=== PATIENT | female | born 1995 | race Caucasian/White ===

== ENCOUNTER 2021-08-24 06:40 | Inpatient (IN) ==
[2021-08-24] MEDS: LACTATED RINGER'S 1,000 ML IV PRN ×2 (08:00→11:56)
[2021-08-24 09:41] LABS: Hematocrit (blood only) 35.9 % (37-47); Hemoglobin 12.1 g/dL (12.0-16.0); Mean Corpuscular Hemoglobin 29.2 pg (25-34); Mean Corpuscular Hgb Conc 33.7 g/dL (32-36); Mean Corpuscular Volume 86.5 fL (80-100); Mean Platelet Volume 12.6 fL (7.4-10.4); Platelet Count 201 K/uL (130-400); RDW Coefficient of Variation 15.2 % (11.5-14.5); RDW Standard Deviation 48.1 fL (36.4-46.3); Red Blood Count 4.15 M/uL (4.2-5.4); White Blood Count 15.76 K/uL (4.8-10.8)
[2021-08-24] MEDS ORDERED: OXYTOCIN 30 UNITS/500 ML BAG IV PRN ×3 (09:44→15:22)
--- NOTE | 2021-08-24 09:44 | History & Physical Report ---
Date of Service August 24, 2021 Assessment & Plan (1) Post-dates : Plan: epidural planned anticipate normal vaginal delivery Admission and Anticipated Discharge Date Admission Date: August 24, 2021 History of Present Illness Chief Complaint: post-dates for induction of labor Primary Care Provider: KASSIE PCP 26 F P2012 at 41.4 weeks admitted for induction of labor for post dates and started to have contractions on her own starting at 0830 this morning. Now 4 cm and starting to get uncomfortable. 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 Other Information That Helps Us Care for You: No Feels Safe at Home: Yes Safety Concerns: Feels Safe At This Time Assistive Devices: None Review of Systems Review of Systems: All systems reviewed & are unremarkable except as noted in HPI & below Physical Exam Constitutional: WD/WN, vitals as above Eyes: PERRL, conjunctivae normal, anicteric sclerae Respiratory: normal respiratory effort, lungs clear to auscultation Cardiovascular: RRR, no murmur, no edema Skin: no rashes, warm and dry Neurologic: patellar DTR's 2+ bilat, sensation intact Psychiatric: A+Ox3, euthymic affect Genitourinary: OB Exam Abdomen: + vertex and + estimated weight (7 lbs.) Manual OB Exam: + cervical dilation 4 cm, + cervical effacement 70% and + station -2 OB Exam Monitor Tracing: + external FHT monitor used, + external uterine monitor used, + category I and + normal FHT variability Results & Data Results & Data ([facility]) Vital Signs (Past 12 Hours) Vital Signs Temp Pulse Resp BP 08/24/21 07:02 80 107/58 L 08/24/21 07:00 37.1 C 80 18 107/58 L Laboratory Results Laboratory Results - last 72 hr 08/24/21 09:28 WBC 15.76 H RBC 4.15 L Hgb 12.1 Hct 35.9 L MCV 86.5 MCH 29.2 MCHC 33.7 RDW Std Deviation 48.1 H RDW Coeff of Jack 15.2 H Plt Count 201 MPV 12.6 H
[2021-08-24] MEDS ORDERED: SODIUM CHLORIDE 0.9% INJ 10 ML VIAL ONE (09:46)
[2021-08-24] MEDS ORDERED: ePHEDrine sulfate 50 MG/ML AMP ONE (09:46)
[2021-08-24] MEDS ORDERED: fentaNYL citrate 100 MCG/2 ML VIAL ONE (09:47)
[2021-08-24] MEDS ORDERED: BUPIVACAINE 0.25% 30 ML VIAL ONE (09:47)
[2021-08-24] MEDS ORDERED: fentaNYL 2MCG/ML ROPIVACAINE 1.25MG/ML 100 ML BAG EPI ONE (09:47)
[2021-08-24] MEDS ORDERED: OXYTOCIN 30 UNITS/500ML NSS ONE (09:48)
--- NOTE | 2021-08-24 10:12 | Anesthesiology Consultation ---
Date of Service August 24, 2021 Assessment & Plan Chart Review Chart Review: Acceptable Risk for Labor Epidural Consults Requested none History Height/Weight Height: 5 ft Weight: 63.2 kg Allergies Allergy/AdvReac Type Severity Reaction Status Date / Time No Known Allergies Allergy Unverified 07/27/21 00:19 Medications Home Medications Medication Instructions Recorded Confirmed Last Taken ferrous sulfate 27 mg iron tablet 27 mg PO BID 07/27/21 08/24/21 08/23/21 [id number] 1 mg 1 tab PO DAILY 07/27/21 08/24/21 08/23/21 tablet Social History Smoking Status: Current every day smoker tobacco type: cigarettes Smoking cigarettes per day: 2 Hx Alcohol Use: No Hx Substance Use: No Physical Exam Vital Signs Last Vital Signs Temp 37.1 C 08/24/21 07:00 Pulse 75 08/24/21 10:10 Resp 18 08/24/21 07:00 BP 101/55 L 08/24/21 10:09 Pulse Ox 99 08/24/21 10:10 Testing Laboratory Results 08/24/21 09:28
[2021-08-24] MEDS ORDERED: diphenhydrAMINE 50 MG/ML VIAL IV PRN (10:14)
[2021-08-24] MEDS ORDERED: ePHEDrine sulfate 50 MG/ML AMP IV PRN (10:14)
[2021-08-24] MEDS ORDERED: fentaNYL 2MCG/ML ROPIVACAINE 1.25MG/ML 100 ML BAG EPI PRN (10:14)
[2021-08-24] MEDS ORDERED: NALOXONE HCL 0.4 MG/1 ML VIAL/CARP IV PRN (10:14)
[2021-08-24] MEDS ORDERED: NALBUPHINE HCL INJ 10 MG/ML AMP IV PRN (10:14)
[2021-08-24] MEDS ORDERED: NALOXONE HCL 1 MG in SODIUM CHLORIDE 0.9% 1000ML 1,000 ML IV PRN (10:14)
--- NOTE | 2021-08-24 10:53 | Labor Progress Brief Note ---
Date of Service August 24, 2021 Assessment & Plan Admission and Anticipated Discharge Date Admission Date: August 24, 2021 Physical Exam Genitourinary: Manual OB Exam: + cervical dilation 4 cm, + cervical effacement 70%, + station -2 and + amniotic fluid clear AROM with Amni-hook clear fluid will start Oxytocin to augment contractions Results & Data ([facility]) Vital Signs (Past 12 Hours) Vital Signs Temp Pulse Resp BP Pulse Ox 08/24/21 10:48 71 111/58 L 08/24/21 10:45 66 99 08/24/21 10:40 63 100 08/24/21 10:35 75 100 08/24/21 10:31 65 112/60 08/24/21 10:30 69 96 08/24/21 10:25 81 100 08/24/21 10:20 69 100 08/24/21 10:19 96 H 120/56 L 08/24/21 10:16 75 111/58 L 08/24/21 10:15 65 99 08/24/21 10:14 90 101/57 L 08/24/21 10:13 86 89/48 L 08/24/21 10:10 75 99 08/24/21 10:09 74 101/55 L 08/24/21 10:07 78 104/56 L 08/24/21 10:05 70 99 08/24/21 10:04 63 104/59 L 08/24/21 10:01 62 108/58 L 08/24/21 10:00 66 96 08/24/21 09:55 68 97 08/24/21 09:54 57 L 108/58 L 08/24/21 09:52 62 92 08/24/21 09:50 70 100 08/24/21 07:02 80 107/58 L 08/24/21 07:00 37.1 C 80 18 107/58 L
[2021-08-24 12:27] LABS: Amphetamines+Metham, Urine Neg (Neg); Barbiturates, Urine Neg (Neg); Benzodiazepine, Urine Neg (Neg); Cocaine, Urine Neg (Neg); MDMA (Ecstacy), Urine Neg (Neg); Methadone, Urine Neg (Neg); Opiate, Urine Neg (Neg); Phencyclidine, Urine Neg (Neg)
--- NOTE | 2021-08-24 14:55 | Labor Progress Brief Note ---
Date of Service August 24, 2021 Assessment & Plan Admission and Anticipated Discharge Date Admission Date: August 24, 2021 Physical Exam Genitourinary: Manual OB Exam: + cervical dilation 10 cm, + cervical effacement 100%, + station + 1 and + amniotic fluid clear OB Exam Monitor Tracing: + external FHT monitor used, + external uterine monitor used, + category I and + normal FHT variability Results & Data ([facility]) Vital Signs (Past 12 Hours) Vital Signs Temp Pulse Resp BP Pulse Ox 08/24/21 14:48 74 114/56 L 08/24/21 14:32 70 105/58 L 08/24/21 14:19 71 107/60 08/24/21 14:15 18 08/24/21 14:01 102 H 116/70 08/24/21 13:56 93 H 87 L 08/24/21 13:55 78 97 08/24/21 13:50 110 H 97 08/24/21 13:49 36.9 C 18 08/24/21 13:48 90 118/73 08/24/21 13:45 75 18 98 08/24/21 13:40 73 99 08/24/21 13:35 65 100 08/24/21 13:32 74 130/64 08/24/21 13:30 62 99 08/24/21 13:25 67 99 08/24/21 13:20 60 99 08/24/21 13:16 83 106/68 08/24/21 13:15 75 18 99 08/24/21 13:10 62 98 08/24/21 13:05 87 99 08/24/21 13:02 74 104/58 L 08/24/21 13:00 64 98 08/24/21 12:55 75 100 08/24/21 12:50 86 99 08/24/21 12:48 80 109/58 L 08/24/21 12:45 59 L 18 98 08/24/21 12:40 65 99 08/24/21 12:35 76 99 08/24/21 12:33 18 08/24/21 12:31 72 106/59 L 08/24/21 12:30 61 98 08/24/21 12:25 72 99 08/24/21 12:20 76 99 08/24/21 12:17 74 105/55 L 08/24/21 12:15 60 18 98 08/24/21 12:10 71 100 08/24/21 12:05 64 99 08/24/21 12:01 75 94/65 L 08/24/21 12:00 62 98 08/24/21 11:59 36.9 C 18 08/24/21 11:55 87 100 08/24/21 11:53 18 08/24/21 11:50 82 100 08/24/21 11:46 84 88/62 L 08/24/21 11:45 82 16 100 08/24/21 11:40 73 100 08/24/21 11:35 84 99 08/24/21 11:31 68 89/56 L 08/24/21 11:30 65 100 08/24/21 11:25 73 99 08/24/21 11:20 64 99 08/24/21 11:16 67 105/58 L 08/24/21 11:15 70 18 98 08/24/21 11:10 63 97 08/24/21 11:05 62 99 08/24/21 11:03 59 L 104/56 L 89 L 08/24/21 11:00 74 99 08/24/21 10:55 64 100 08/24/21 10:50 58 L 100 08/24/21 10:48 71 111/58 L 08/24/21 10:45 66 99 08/24/21 10:40 63 100 08/24/21 10:35 75 100 08/24/21 10:31 65 112/60 08/24/21 10:30 69 96 08/24/21 10:25 81 100 08/24/21 10:20 69 100 08/24/21 10:19 96 H 120/56 L 08/24/21 10:16 75 111/58 L 08/24/21 10:15 65 99 08/24/21 10:14 90 101/57 L 08/24/21 10:13 86 89/48 L 08/24/21 10:10 75 99 08/24/21 10:09 74 101/55 L 08/24/21 10:07 78 104/56 L 08/24/21 10:05 70 99 08/24/21 10:04 63 104/59 L 08/24/21 10:01 62 108/58 L 08/24/21 10:00 66 96 08/24/21 09:55 68 97 11/29/21 09:54 57 L 108/58 L 08/24/21 09:52 62 92 08/24/21 09:50 70 100 08/24/21 07:02 80 107/58 L 08/24/21 07:00 37.1 C 80 18 107/58 L
--- NOTE | 2021-08-24 15:20 | Delivery Summary ---
Vaginal Delivery Summary Date of Service August 24, 2021 Vaginal Delivery Summary Delivery Note live male COREY over intact perineum with delayed cord clamping and 8/9 weight pending. Cord blood obtained followed by spontaneous delivery of intact placenta. No tears. EBL 100 ml. Final sponge and instrument count are correct. Mom and baby stable.
[2021-08-24] MEDS ORDERED: bisacodyL 10 MG SUPP PR PRN (15:22)
[2021-08-24] MEDS ORDERED: BENZOCAINE 20% AER SPR 82.5 GM CAN EXT PRN (15:22)
[2021-08-24] MEDS ORDERED: HYDROCORTISONE ACETATE 25 MG SUPP PR PRN (15:22)
[2021-08-24] MEDS ORDERED: DIPHTHERIA/TETANUS/PERTUSSIS 0.5 ML SYR/VIAL IM ONE (15:22)
[2021-08-24] MEDS ORDERED: ACETAMINOPHEN 325 MG TAB PO PRN (15:22)
[2021-08-24] MEDS ORDERED: SUPERCREAM 0.870% 15 GM JAR EXT PRN (15:22)
--- NOTE | 2021-08-24 17:36 | Anesthesia Procedure Note ---
Date of Service August 24, 2021 Anesthesia Post Epidural Note Vital Signs Vital Signs: Temp Pulse Resp BP Pulse Ox 36.9 C 71 18 98/54 L 87 L 08/24/21 13:49 08/24/21 16:51 08/24/21 14:45 08/24/21 16:51 08/24/21 13:56 Notes Mental Status: alert / awake / arousable Nausea / Vomiting: adequately controlled Pain: adequately controlled Airway Patency, RR, SpO2: stable & adequate BP & HR: stable & adequate Hydration State: stable & adequate Neuraxial Anesthesia: was administered and sensory block is resolving Anesthetic Complications: no major complications apparent and Pt Satisfied with anesthetic care Epidural: Removed without complications and With tip intact
[2021-08-24] MEDS: FERROUS SULFATE 325 MG TAB PO SCH (17:57)
[2021-08-24] MEDS: DOCUSATE SODIUM 100 MG CAP PO SCH (20:11)
[2021-08-24] MEDS: IBUPROFEN 600 MG TAB PO PRN (20:11)
[2021-08-25] MEDS: IBUPROFEN 600 MG TAB PO PRN ×4 (03:51→21:46)
[2021-08-25 06:52] LABS: Hematocrit (blood only) 36.1 % (37-47); Hemoglobin 11.8 g/dL (12.0-16.0); Mean Corpuscular Hemoglobin 28.5 pg (25-34); Mean Corpuscular Hgb Conc 32.7 g/dL (32-36); Mean Corpuscular Volume 87.2 fL (80-100); Mean Platelet Volume 13.1 fL (7.4-10.4); Platelet Count 202 K/uL (130-400); RDW Coefficient of Variation 15.4 % (11.5-14.5); RDW Standard Deviation 49.6 fL (36.4-46.3); Red Blood Count 4.14 M/uL (4.2-5.4)
[2021-08-25] MEDS: FERROUS SULFATE 325 MG TAB PO SCH ×2 (08:54→18:39)
[2021-08-25] MEDS: DOCUSATE SODIUM 100 MG CAP PO SCH ×2 (08:54→21:46)
[2021-08-25] MEDS: PRENATAL VITAMIN 1 TAB PO SCH (08:54)
[2021-08-25] MEDS ORDERED: NON-FORMULARY MEDICATION (Prenatal Multivit-Min-Fe-Fa 1 mg Tablet) PO SCH (09:00)
--- NOTE | 2021-08-25 10:03 | Obstetrical Progress Note ---
Date of Service August 25, 2021 Assessment & Plan (1) Post-dates : PPD #1 Pt doing well Hx of alcohol abuse CY involved management plan anticipate disch tomorrow Results & Data ([facility]) Vital Signs (Past 12 Hours) Vital Signs Temp Pulse Resp BP Pulse Ox 08/25/21 07:25 36.4 C L 55 L 12 102/61 99 08/25/21 03:50 36.9 C 67 16 92/53 L 99 08/24/21 23:40 36.9 C 72 16 100/52 L
[2021-08-25] MEDS ORDERED: bisacodyL 5 MG TABEC PO SCH (20:00)
[2021-08-26 07:07] LABS: Hematocrit (blood only) 37.6 % (37-47); Hemoglobin 12.2 g/dL (12.0-16.0)
--- NOTE | 2021-08-26 08:48 | Obstetrical Progress Note ---
Date of Service August 26, 2021 Subjective Ambulation: ambulating normally Voiding: no voiding problems Passing Gas:: Yes Diet Tolerance:: regular diet Lochia:: Small Feeding Type:: breast feeding Current Pain Level(1-10): 0 doing well plans for d/c Physical Exam Constitutional WD/WN, vitals as above comfortable abdomen soft and non-tender fundus firm no edema neg Yelena's for d/c Results & Data ([facility]) Vital Signs (Past 12 Hours) Vital Signs Temp Pulse Resp BP 08/25/21 23:50 36.6 C 82 18 106/58 L Laboratory Results 08/24/21 08/24/21 08/24/21 06:45 06:45 07:03 WBC RBC Hgb Hct MCV MCH MCHC RDW Std Deviation RDW Coeff of Jack Plt Count MPV Ur Butalbital Confirm Cancelled Urine Opiates Screen Cancelled Neg U Codeine Confrm GC/MS Cancelled Ur Morphine (GC/MS) Cancelled Ur Hydrocodone (GC/MS) Cancelled U Norhydrocodone Conf Cancelled Ur Oxycodone Screen Cancelled U Noroxycodone Confirm Cancelled Ur Oxycodone GC/MS Cancelled U Oxymorphone GC/MS Cancelled EDDP Confirm Cancelled Ur Methadone, Qual Cancelled Neg Ur Methadone Cancelled Ur Hydromorphone (GC/MS) Cancelled Urine Barbiturates Cancelled Neg Ur Phencyclidine Scrn Cancelled Ur Phencyclidine (PCP) Neg Urine PCP Confirm Cancelled Ur Amphetamines Screen Cancelled U Amphetamines Confirm Cancelled U Amphetamin/Meth Scrn Neg Methamphetamine GC/MS Cancelled MDMA (Ecstasy) Screen Neg Ur Amobarbital GC/MS Cancelled U Pentobarbital GC/MS Cancelled U Phenobarbital GC/MS Cancelled U Secobarbital GC/MS Cancelled U [id number] GC/MS Cancelled U Benzodiazepines Scrn Cancelled Neg U 7-Aminoclonazepam Screen Cancelled Ur Nordiazepam GC/MS Cancelled U OH-ethylfluraz GC/MS Cancelled U Lorazepam Cnf GC/MS Cancelled U Oxazepam Confm GC/MS Cancelled Ur Temazepam Cnf GC/MS Cancelled U a-Hydroxytriaz GC/MS Cancelled U l-[id number]-[id number] Cancelled Urine Cocaine Cancelled Ur Cocaine Metabolite Neg U Cocaine Metab Confirm Cancelled Tetrahydrocannabinol Cancelled U Marijuana (THC) Screen Cancelled Neg Drug Screen Comment Cancelled Ethyl Alcohol mg/dL SARS-CoV-2, RNA, NAAT NEGATIVE Reference Lab Cancelled 08/24/21 08/24/21 08/25/21 09:28 10:16 06:30 WBC 15.76 H 16.30 H RBC 4.15 L 4.14 L Hgb 12.1 11.8 L Hct 35.9 L 36.1 L MCV 86.5 87.2 MCH 29.2 28.5 MCHC 33.7 32.7 RDW Std Deviation 48.1 H 49.6 H RDW Coeff of Jack 15.2 H 15.4 H Plt Count 201 202 MPV 12.6 H 13.1 H Ur Butalbital Confirm Urine Opiates Screen U Codeine Confrm GC/MS Ur Morphine (GC/MS) Ur Hydrocodone (GC/MS) U Norhydrocodone Conf Ur Oxycodone Screen U Noroxycodone Confirm Ur Oxycodone GC/MS U Oxymorphone GC/MS EDDP Confirm Ur Methadone, Qual Ur Methadone Ur Hydromorphone (GC/MS) Urine Barbiturates Ur Phencyclidine Scrn Ur Phencyclidine (PCP) Urine PCP Confirm Ur Amphetamines Screen U Amphetamines Confirm U Amphetamin/Meth Scrn Methamphetamine GC/MS MDMA (Ecstasy) Screen Ur Amobarbital GC/MS U Pentobarbital GC/MS U Phenobarbital GC/MS U Secobarbital GC/MS U d-QD-Agperheol GC/MS U Benzodiazepines Scrn U 7-Aminoclonazepam Screen Ur Nordiazepam GC/MS U OH-ethylfluraz GC/MS U Lorazepam Cnf GC/MS U Oxazepam Confm GC/MS Ur Temazepam Cnf GC/MS U a-Hydroxytriaz GC/MS U [id number] Urine Cocaine Ur Cocaine Metabolite U Cocaine Metab Confirm Tetrahydrocannabinol U Marijuana (THC) Screen Drug Screen Comment Ethyl Alcohol mg/dL < 3.0 SARS-CoV-2, RNA, NAAT Reference Lab 08/26/21 06:39 WBC RBC Hgb 12.2 Hct 37.6 MCV MCH MCHC RDW Std Deviation RDW Coeff of Jack Plt Count MPV Ur Butalbital Confirm Urine Opiates Screen U Codeine Confrm GC/MS Ur Morphine (GC/MS) Ur Hydrocodone (GC/MS) U Norhydrocodone Conf Ur Oxycodone Screen U Noroxycodone Confirm Ur Oxycodone GC/MS U Oxymorphone GC/MS EDDP Confirm Ur Methadone, Qual Ur Methadone Ur Hydromorphone (GC/MS) Urine Barbiturates Ur Phencyclidine Scrn Ur Phencyclidine (PCP) Urine PCP Confirm Ur Amphetamines Screen U Amphetamines Confirm U Amphetamin/Meth Scrn Methamphetamine GC/MS MDMA (Ecstasy) Screen Ur Amobarbital GC/MS U Pentobarbital GC/MS U Phenobarbital GC/MS U Secobarbital GC/MS U b-[id number] GC/MS U Benzodiazepines Scrn U 7-Aminoclonazepam Screen Ur Nordiazepam GC/MS U OH-ethylfluraz GC/MS U Lorazepam Cnf GC/MS U Oxazepam Confm GC/MS Ur Temazepam Cnf GC/MS U a-Hydroxytriaz GC/MS U [id number] Urine Cocaine Ur Cocaine Metabolite U Cocaine Metab Confirm Tetrahydrocannabinol U Marijuana (THC) Screen Drug Screen Comment Ethyl Alcohol mg/dL SARS-CoV-2, RNA, NAAT Reference Lab
[2021-08-26] MEDS: IBUPROFEN 600 MG TAB PO PRN (09:28)
[2021-08-26] MEDS: FERROUS SULFATE 325 MG TAB PO SCH (09:29)
[2021-08-26] MEDS: DOCUSATE SODIUM 100 MG CAP PO SCH (09:29)
[2021-08-26] MEDS: PRENATAL VITAMIN 1 TAB PO SCH (09:29)
== END 2021-08-26 15:41 | disposition home or self-care (01) | DRG 807 ==
LOC: 4S1 06:40 → 4S2 17:15
DX: F17.210 Nicotine dependence, cigarettes, uncomplicated; O48.0 Post-term pregnancy; O99.334 Smoking (tobacco) complicating childbirth; Z3A.41 41 weeks gestation of pregnancy; Z20.822 Contact with and (suspected) exposure to COVID-19; Z37.0 Single live birth